=== PATIENT | female | born 1955 | race Caucasian/White ===

== ENCOUNTER 2016-11-02 08:58 | Emergency (ER) | payer BC, OTHER ==
[~2016-11-02] VITALS: Ht 154.9 cm; Wt 79.4 kg
[2016-11-02] MEDS ORDERED: NS IV 1000 ML 1,000 ML IV SCH (09:45)
[2016-11-02] MEDS ORDERED: morphine INJ 5 MG/ML 1 ML VIAL IVP ONE (09:45)
[2016-11-02] MEDS ORDERED: ONDANSETRON 4 MG/2 ML (SDV) Z0FRAN IVP ONE (09:45)
[2016-11-02] MEDS ORDERED: morphine INJ 10 MG/ML 1ML (SYR OR VIAL) ONE (09:52)
--- NOTE | 2016-11-02 09:54 | ED GI ---
General Chief Complaint: Abdominal/GI Problems Stated Complaint: FOOD POISONING Source of Information: Patient, EMS Exam Limitations: No Limitations History of Present Illness Time Seen By Provider: 09:50 Initial Comments This 61-year-old white female presents with a history of vomiting that began in the middle of the night approximately 8 hours ago. The patient has had a significant volume loss and secondary weakness. She was brought to the emergency department by EMS. There is been no history of hematemesis or bloody stools. The patient has had body aches, fever, and general malaise as well as the vomiting. Actually on further history taking and patient clarified that she had the sensation that she was going to have diarrhea but because of her persistent vomiting she has actually had no episode of stools, either solid or watery. Past medical history includes reflux. The patient may be suffering from food poisoning from a buffet last night. It is been requested that stool specimen be sent to the [facility] for evaluation. Allergies and Home Medications Allergies Coded Allergies: acetaminophen (Verified Allergy, Unknown, 11/02/16) lisinopril (Verified Allergy, Unknown, 11/02/16) oxycodone (Verified Allergy, Unknown, 11/02/16) Home Medications [Asa] , (Reported) [Atenolol] , (Reported) [Xanax] , (Reported) Review of Systems Constitutional: chills, fever, malaise, weakness EENTM: No Blurred Vision Respiratory: Denies Cough Cardiovascular: Denies Chest Pain Gastrointestinal: See HPI, Abdominal Pain, Diarrhea, Nausea, Denies Rectal Bleeding, Vomiting Genitourinary: No Symptoms Reported Musculoskeletal: muscle pain Skin: No rash Psychiatric/Neurological: Denies Anxiety, Denies Depressed Endocrine: No Symptoms Reported Hematologic/Lymphatic: No Symptoms Reported Past Ealncva-Trntdq-Xttueu Hx Patient Social History Alcohol Use: Denies Use Recreational Drug Use: No Smoking Status: Never a Smoker Recent Hopitalizations: No Surgeries HX Surgeries: Yes (THROAT CA,RICK) Surgeries: Orthopedic Respiratory Hx Respiratory Disorders: No Cardiovascular Hx Cardiac Disorders: Yes Cardiac Disorders: Hypertension Neurological Hx Neurological Disorders: No Genitourinary Hx Genitourinary Disorders: No Gastrointestinal Hx Gastrointestinal Disorders: No Musculoskeletal Hx Musculoskeletal Disorders: Yes Endocrine Hx Endocrine Disorders: Yes Endocrine Disorders: Diabetes, Non-Insulin dep Cancer Hx Cancer: Yes (THRAOT) Psychosocial Hx Psychiatric Problems: No Reviewed Nursing Assessment Reviewed/Agree w Nursing PMH: Yes Physical Exam Vital Signs VS - Last 72 Hours, by Label 11/02/16 11/02/16 09:23 11:07 Temp 101.0 Pulse 104 100 Resp 18 B/P (MAP) 131/84 120/75 Pulse Ox 95 96 O2 Delivery Room Air Room Air Capillary Refill : General Appearance: WD/WN, mild distress HEENT: PERRL/EOMI, normal ENT inspection Neck: full range of motion, supple Respiratory: lungs clear, normal breath sounds Cardiovascular: normal peripheral pulses, regular rate, rhythm, no murmur Gastrointestinal: normal bowel sounds, tenderness (there is mild diffuse tenderness to palpation of the abdomen. No masses or rebound were noted.) Extremities: normal range of motion, non-tender, normal inspection Back: normal inspection Neurologic/Psychiatric: no motor/sensory deficits, alert, oriented x 3 Skin: normal color, warm/dry Progress/Results/Core Measures Results/Orders Lab Results Laboratory Tests Test 11/02/16 09:50 11/02/16 10:14 Range/Units Urine Color YELLOW Urine Clarity VERY CLOUDY H Urine pH 8 5-9 Urine Specific [place] 1.010 L 1.016-1.022 Urine Protein NEGATIVE NEGATIVE Urine Glucose (UA) NEGATIVE NEGATIVE Urine Ketones NEGATIVE NEGATIVE Urine Nitrite NEGATIVE NEGATIVE Urine Bilirubin NEGATIVE NEGATIVE Urine Urobilinogen NORMAL NORMAL MG/DL Urine Leukocyte Esterase NEGATIVE NEGATIVE Urine RBC (Auto) NEGATIVE NEGATIVE Urine RBC NONE /HPF Urine WBC NONE /HPF Urine Squamous Epithelial Cells NONE /HPF Urine Crystals NONE /LPF Urine Amorphous Sediment LARGE MAGNOLIA PHOSPHATE H /LPF Urine Bacteria NEGATIVE /HPF Urine Casts NONE /LPF Urine Mucus NEGATIVE /LPF Urine Culture Indicated NO White Blood Count 7.2 4.3-11.0 10^3/uL Red Blood Count 4.65 4.35-5.85 10^6/uL Hemoglobin 13.8 11.5-16.0 G/DL Hematocrit 40 35-52 % Mean Corpuscular Volume 87 80-99 FL Mean Corpuscular Hemoglobin 30 25-34 PG Mean Corpuscular Hemoglobin Concent 34 32-36 G/DL Red Cell Distribution Width 13.6 10.0-14.5 % Platelet Count 205 130-400 10^3/uL Mean Platelet Volume 9.2 7.4-10.4 FL Neutrophils (%) (Auto) 92 H 42-75 % Lymphocytes (%) (Auto) 3 L 12-44 % Monocytes (%) (Auto) 4 0-12 % Eosinophils (%) (Auto) 0 0-10 % Basophils (%) (Auto) 0 0-10 % Neutrophils # (Auto) 6.6 1.8-7.8 X 10^3 Lymphocytes # (Auto) 0.2 L 1.0-4.0 X 10^3 Monocytes # (Auto) 0.3 0.0-1.0 X 10^3 Eosinophils # (Auto) 0.0 0.0-0.3 10^3/uL Basophils # (Auto) 0.0 0.0-0.1 10^3/uL Neutrophils % (Manual) 80 % Lymphocytes % (Manual) 3 % Monocytes % (Manual) 4 % Eosinophils % (Manual) 0 % Basophils % (Manual) 0 % Band Neutrophils 13 % Blood Morphology Comment NORMAL Sodium Level 142 135-145 MMOL/L Potassium Level 3.8 3.6-5.0 MMOL/L Chloride Level 106 98-107 MMOL/L Carbon Dioxide Level 25 21-32 MMOL/L Anion Gap 11 5-14 MMOL/L Blood Urea Nitrogen 18 7-18 MG/DL Creatinine 0.74 0.60-1.30 MG/DL Estimat Glomerular Filtration Rate > 60 BUN/Creatinine Ratio 24 Glucose Level 174 H 70-105 MG/DL Calcium Level 8.6 8.5-10.1 MG/DL Total Bilirubin 0.9 0.1-1.0 MG/DL Aspartate Amino Transf (AST/SGOT) 22 5-34 U/L Alanine Aminotransferase (ALT/SGPT) 32 0-55 U/L Alkaline Phosphatase 32 L 40-136 U/L Total Protein 6.6 6.4-8.2 G/DL Albumin 3.8 3.2-4.5 G/DL Lipase 38 8-78 U/L My Orders Orders - NAHID CALLE MD Cbc With Automated Diff (11/02/16 09:41) Comprehensive Metabolic Panel (11/02/16 09:41) Lipase (11/02/16 09:41) Ua Culture If Indicated (11/02/16 09:41) Ondansetron Injection (Zofran Injectio (11/02/16 09:45) Morphine Injection (Morphine Injection (11/02/16 09:45) Ns Iv 1000 Ml (Sodium Chloride 0.9%) (11/02/16 09:45) Morphine Injection (Morphine Injection (11/02/16 09:52) Manual Differential (11/02/16 10:14) Acetaminophen Tablet (Tylenol Tablet) (11/02/16 11:00) Acetaminophen Tablet (Tylenol Tablet) (11/02/16 10:53) Stool Culture (11/02/16 11:13) Famotidine Injection (Pepcid Injection) (11/03/16 09:00) Ibuprofen Tablet (Motrin Tablet) (11/02/16 12:00) Famotidine Injection (Pepcid Injection) (11/02/16 12:01) Antacid Suspension (Mylanta Suspension (11/02/16 12:30) Lidocaine 2% Viscous 15 Ml (Xylocaine Vi (11/02/16 12:30) Medications Given in ED Current Medications Medications Dose Ordered Sig/Morro Route Start Time Stop Time Status Last Admin Dose Admin Acetaminophen 1,000 mg ONCE ONCE PO 11/02/16 11:00 11/02/16 11:01 DC 11/02/16 10:57 1,000 MG Ibuprofen 800 mg Q6H PRN PO 11/02/16 12:00 11/02/16 12:05 800 MG Morphine Sulfate 10 mg STK-MED ONCE .ROUTE 11/02/16 09:52 11/02/16 09:55 DC 11/02/16 10:00 5 MG Ondansetron HCl 4 mg ONCE ONCE IVP 11/02/16 09:45 11/02/16 09:46 DC 11/02/16 09:57 4 MG Vital Signs/I&O Vital Sign - Last 12Hours 11/02/16 11/02/16 09:23 11:07 Temp 101.0 Pulse 104 100 Resp 18 B/P (MAP) 131/84 120/75 Pulse Ox 95 96 O2 Delivery Room Air Room Air Progress Note : Time: 12:32 Progress Note The patient was given IV fluids and ondansetron IV. The patient had no episodes of vomiting or diarrhea while in the emergency department. Patient's reflux was treated with Pepcid and a GI cocktail. Patient's laboratory evaluation demonstrated no evidence of significant leukocytosis or dehydration. The patient's cramping abdominal pain was treated with IV morphine. I provided the patient remained in the hospital but she at this point is going back to her hotel to rest with her . She feels comfortable returning if she has any further problems. I prescribed Zofran for further nausea and a small amount of hydrocodone should she have further abdominal discomfort. I sent her with stool specimen containers in the event she elects to submit stool specimens. Departure Impression Impression: Primary Impression: Nausea and vomiting Qualified Codes: R11.2 - Nausea with vomiting, unspecified Disposition: HOME, SELF-CARE Condition: Improved Departure-Patient Inst. Decision time for Depature: 12:35 Patient Instructions: Food Poisoning (DC) Add. Discharge Instructions: Clear liquids. Zofran for nausea. Vicodin for any recurrent abdominal pain. Close follow-up with your doctor in [place] on Friday. Return if any problems. Stool specimen containers for culture and multiplex PCI GI panel. All discharge instructions reviewed with patient and/or family. Voiced understanding. NAHID CALLE MD Nov 02, 2016 09:54
[2016-11-02 10:17] LABS: BILIRUBIN,URINE NEGATIVE (NEGATIVE); KETONES,URINE NEGATIVE (NEGATIVE); LEUKOCYTE ESTERASE ,URINE NEGATIVE (NEGATIVE); NITRITE,URINE NEGATIVE (NEGATIVE); PH,URINE 8 (5-9); PROTEIN,URINE NEGATIVE (NEGATIVE); UROBILINOGEN,URINE NORMAL (NORMAL)
[2016-11-02] MEDS ORDERED: ATENOLOL (10:18)
[2016-11-02] MEDS ORDERED: ASA (10:18)
[2016-11-02] MEDS ORDERED: XANAX (10:22)
[2016-11-02 10:27] LABS: BASOPHILS % (AUTO) 0 % (0-10); EOSINOPHILS % (AUTO) 0 % (0-10); LYMPHOCYTES # (AUTO) 0.2 X 10^3 (1.0-4.0); LYMPHOCYTES % (AUTO) 3 % (12-44); MEAN CORPUSCULAR HEMOGLOBIN 30 PG (25-34); MEAN CORPUSCULAR HGB CONC 34 G/DL (32-36); MEAN CORPUSCULAR VOLUME 87 FL (80-99); MEAN PLATELET VOLUME 9.2 FL (7.4-10.4); MONOCYTES # (AUTO) 0.3 X 10^3 (0.0-1.0); MONOCYTES % (AUTO) 4 % (0-12); NEUTROPHILS # (AUTO) 6.6 X 10^3 (1.8-7.8); NEUTROPHILS % (AUTO) 92 % (42-75); PLATELET COUNT 205 10^3/uL (130-400); RED BLOOD COUNT 4.65 10^6/uL (4.35-5.85); RED CELL DISTRIBUTION WIDTH 13.6 % (10.0-14.5); WHITE BLOOD COUNT 7.2 10^3/uL (4.3-11.0)
[2016-11-02 10:40] LABS: ALANINE AMINOTRANSFERASE 32 U/L (0-55); ALBUMIN 3.8 G/DL (3.2-4.5); ANION GAP 11 MMOL/L (5-14); ASPARTATE AMINO TRANSFERASE 22 U/L (5-34); BILIRUBIN,TOTAL 0.9 MG/DL (0.1-1.0); BLOOD UREA NITROGEN 18 MG/DL (7-18); BUN/CREATININE RATIO 24; CALCIUM 8.6 MG/DL (8.5-10.1); CARBON DIOXIDE 25 MMOL/L (21-32); CHLORIDE 106 MMOL/L (98-107); CREATININE SERUM 0.74 MG/DL (0.60-1.30); GFR ESTIMATED > 60; GLUCOSE 174 MG/DL (70-105); LIPASE 38 U/L (8-78); POTASSIUM 3.8 MMOL/L (3.6-5.0); SODIUM 142 MMOL/L (135-145); TOTAL PROTEIN 6.6 G/DL (6.4-8.2)
[2016-11-02] MEDS ORDERED: ACETAMINOPHEN 500 MG TAB (TYLENOL) ONE (10:53)
[2016-11-02 10:57] LABS: BAND NEUTROPHILS 13 %; BASOPHILS % (MANUAL) 0 %; EOSINOPHILS % (MANUAL) 0 %; LYMPHOCYTES % (MANUAL) 3 %; NEUTROPHILS % (MANUAL) 80 %
[2016-11-02] MEDS ORDERED: ACETAMINOPHEN 500 MG TAB (TYLENOL) PO ONE (11:00)
[2016-11-02 11:07] VITALS: BP 120/75
[2016-11-02] MEDS ORDERED: IBUPROFEN TABLET 200 MG TAB PO PRN (12:00)
[2016-11-02] MEDS ORDERED: FAMOTIDINE 20MG/2ML IV (PEPCID) ONE (12:01)
[2016-11-02] MEDS ORDERED: ANTACID SUSP 30 ML UDC (MYLANTA) PO ONE (12:30)
[2016-11-02] MEDS ORDERED: LIDOCAINE 2% VISCOUS 15 ML UDC PO ONE (12:30)
[2016-11-02 12:49] VITALS: BP 136/76
[2016-11-02 14:00] VITALS: BP 135/75
[2016-11-03] MEDS ORDERED: FAMOTIDINE 20MG/2ML IV (PEPCID) IVP SCH (09:00)
== END 2016-11-02 14:03 | disposition home or self-care (01) ==
LOC: ER 08:59
DX: R11.2 Nausea with vomiting, unspecified (principal); I10 Essential (primary) hypertension; Z79.899 Other long term (current) drug therapy
CPT/HCPCS: 36415; 80053; 81000; 83690; 85007; 85027; 96361; 96374; 96375